=== PATIENT | female | born 1960 | race Caucasian/White ===

== ENCOUNTER → 2018-01-18 | Outpatient (CLI) | payer BC ==
[~2018-01-18] MED LIST: CALC1CAP8 PO; CHOL10003 PO; CITA20TA6 PO; METO25TA35 PO; MULT-717 PO; OMEP-110 PO; VITA1TAB86 PO; iron PO
[2018-01-18 12:11] LABS: BASOPHILS # (AUTO) 0.02 x10^3/uL (0-0.1); BASOPHILS % (AUTO) 0 % (0-1); EOSINOPHILS # (AUTO) 0.14 x10^3/uL (0-0.4); EOSINOPHILS % (AUTO) 3 % (1-7); LYMPHOCYTES # (AUTO) 1.02 x10^3/uL (1-3.4); LYMPHOCYTES % (AUTO) 18 % (22-44); MD NO; MEAN CORPUSCULAR HEMOGLOBIN 29.2 pg (27.0-34.8); MEAN CORPUSCULAR HGB CONC 33.6 g/dL (32.4-35.8); MEAN CORPUSCULAR VOLUME 86.9 fL (80-100); MEAN PLATELET VOLUME 7.4 fL (7.4-10.4); MONOCYTES # (AUTO) 0.34 x10^3/uL (0.2-0.8); MONOCYTES % (AUTO) 6 % (2-9); NEUTROPHILS # (AUTO) 4.16 x10^3/uL (1.8-6.8); NEUTROPHILS % (AUTO) 73 % (42-75); PLATELET COUNT 242 x10^3/uL (130-400); RED BLOOD COUNT 4.84 x10^6/uL (3.82-5.3); RED CELL DISTRIBUTION WIDTH 13.4 % (9.6-15.2)
== END | disposition home or self-care (01) ==
LOC: STAR 11:01
PROVIDERS: ATTEND Surgery
DX: Z01.812 Encounter for preprocedural laboratory examination (principal); Z15.01 Genetic susceptibility to malignant neoplasm of breast
CPT/HCPCS: 36415; 82728; 83540; 83550; 84466; 85025; 93005

== ENCOUNTER 2018-01-25 12:01 | Observation (INO) | payer BC ==
[~2018-01-25] VITALS: Ht 162.6 cm; Wt 85.1 kg
[~2018-01-25 12:01] MED LIST changes: +BACITRACIN 50,000 UNIT ONE; +BUPIVACAINE/PF-EPI 0.5% 1:200K ONE; +CEFAZOLIN 1,000 MG ONE; +GENTAMICIN 80 MG/2 ML ONE
[2018-01-25] MEDS ORDERED: LACTATED RINGERS 1,000 ML IV SCH ×2 (12:43→22:00)
[2018-01-25] MEDS ORDERED: ONDANSETRON 2MG/ML, 2ML IVPush ONE (13:00)
[2018-01-25] MEDS ORDERED: ACETAMINOPHEN 500 MG TABLET PO ONE (13:00)
[2018-01-25] MEDS ORDERED: LIDOCAINE-MPF 1%, 2ML INFIL ONE (13:00)
[2018-01-25] MEDS ORDERED: SCOPOLAMINE PATCH, 1.5MG PATCH.TD72 TD ONE (13:00)
[2018-01-25] MEDS ORDERED: GABAPENTIN 300 MG CAPSULE PO ONE (13:00)
[2018-01-25 13:09] LABS: HCG UR SG 1.021 (1.003-1.030)
[2018-01-25] MEDS ORDERED: FENTANYL PF 250 MCG/5ML ONE (14:24)
[2018-01-25] MEDS ORDERED: MIDAZOLAM 1 MG/ML, 2ML ONE (14:24)
[2018-01-25] MEDS ORDERED: ROCURONIUM 10MG/ML,5ML ONE (14:26)
[2018-01-25] MEDS ORDERED: SUCCINYLCHOLINE 20 MG/ML, 10ML ONE (14:26)
[2018-01-25] MEDS ORDERED: CEFAZOLIN 1,000 MG ONE (14:26)
[2018-01-25] MEDS ORDERED: DEXAMETHASONE 4 MG/ML, 1ML ONE ×2 (14:26)
[2018-01-25] MEDS ORDERED: PROPOFOL 10 MG/ML, 20ML ONE (14:26)
[2018-01-25] MEDS ORDERED: PROMETHAZINE 12.5 MG SUPP PR PRN (15:00)
[2018-01-25] MEDS ORDERED: HYDROmorphone 1 MG/ML, 1ML IV PRN (15:00)
[2018-01-25] MEDS ORDERED: ONDANSETRON 2MG/ML, 2ML IV PRN (15:00)
[2018-01-25] MEDS ORDERED: OXYcodone 5 MG/5 ML ORAL.SOL UDC PO PRN (15:00)
[2018-01-25] MEDS ORDERED: ALBUTEROL SULFATE 2.5 MG/3 ML NPPB PRN (15:00)
[2018-01-25] MEDS ORDERED: PROMETHAZINE 25 MG/ML, 1ML IV PRN (15:00)
[2018-01-25] MEDS ORDERED: ONDANSETRON ODT 8 MG PO PRN (15:00)
[2018-01-25] MEDS ORDERED: hydrALAzine 20 MG/ML, 1ML IV PRN (15:00)
[2018-01-25] MEDS ORDERED: LABETALOL 5MG/ML, 20ML IV PRN (15:00)
[2018-01-25] MEDS ORDERED: MIDAZOLAM 1 MG/ML, 2ML IV PRN (15:00)
[2018-01-25] MEDS ORDERED: MEPERIDINE/PF 25MG/0.5ML IVPush PRN (15:00)
[2018-01-25] MEDS ORDERED: EPHEDRINE 50 MG/ML, 1ML ONE (15:05)
[2018-01-25] MEDS ORDERED: BUPIVACAINE/PF-EPI 0.5% 1:200K INFIL ONE (15:15)
[2018-01-25] MEDS ORDERED: KETOROLAC 30 MG/1 ML ONE (17:02)
[2018-01-25] MEDS ORDERED: ONDANSETRON 2MG/ML, 2ML ONE (18:39)
[2018-01-25] MEDS ORDERED: FENTANYL PF 100 MCG/2ML ONE (19:27)
[2018-01-25] MEDS ORDERED: OXYcodone 5 MG/5 ML ORAL.SOL UDC ONE (19:28)
[2018-01-25] MEDS ORDERED: ONDANSETRON ODT 8 MG ONE (19:40)
[2018-01-25] MEDS: FENTANYL PF 100 MCG/2ML IV PRN ×2 (19:42→19:57)
[2018-01-25] MEDS ORDERED: ACETAMINOPHEN 650 MG/20.3 ML UDC ONE (19:45)
[2018-01-25] MEDS ORDERED: MORPHINE SULFATE 4 MG/ML, 1ML IVPush PRN (22:00)
[2018-01-25] MEDS ORDERED: ONDANSETRON 2MG/ML, 2ML IVPush PRN (22:30)
[2018-01-26 01:15] VITALS: BP 93/57
[2018-01-26] MEDS ORDERED: IBUPROFEN 600 MG TABLET PO PRN (08:30)
[2018-01-26] MEDS ORDERED: ACETAMINOPHEN 325 MG TABLET PO PRN (08:30)
[2018-01-26 08:40] VITALS: BP 107/59
== END 2018-01-26 11:05 | disposition home or self-care (01) ==
LOC: OUT 12:01 → MERGE 14:00 → 4NOR 20:50 → OUT 23:49
PROVIDERS: ADMIT Family Medicine; ATTEND Surgery
DX: Z15.01 Genetic susceptibility to malignant neoplasm of breast (principal); C50.912 Malignant neoplasm of unspecified site of left female breast; C50.911 Malignant neoplasm of unspecified site of right female breast; R11.2 Nausea with vomiting, unspecified; F41.9 Anxiety disorder, unspecified; Z90.13 Acquired absence of bilateral breasts and nipples
CPT/HCPCS: 15777; 19357; 36415; 81025; 86803; 87340; 87806; 88305; 88307; C1729; C1762; G0378; J0330; J0690; J1100; J1580; J1885; J2250; J2405; J2704; J3010; Q0162; G0475